=== PATIENT | female | born 2000 | race Caucasian/White ===

== ENCOUNTER 2020-02-20 18:42 | Emergency (ER) | payer OTHER, SELFPAY ==
[2020-02-20 19:00] VITALS: BP 134/70; PULSE 74; RESP 18; TEMP 36.9; O2SAT 100; BMI 24.2
[2020-02-20 19:27] LABS: UR Morphine/Opiate cutoff 300 Negative (Negative); Ur Creatinine Normal (Normal); Ur Specific Gravity Normal (Normal); Urine Amphetamines Negative (Negative); Urine Cocaine Negative (Negative); Urine Tetrahydrocannabinol Negative (Negative); Urine pH Normal (Normal)
[2020-02-20 19:28] LABS: Urine Barbiturates Negative (Negative); Urine Benzodiazepines Negative (Negative); Urine MDMA Negative (Negative); Urine Methadone Negative (Negative); Urine Methamphetamines Negative (Negative); Urine Oxycodone Negative (Negative); Urine Phencyclidine Negative (Negative); Urine Tricyclic Antidepressant Negative (Negative)
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
[2020-02-20 20:35] LABS: HIV 1 & 2 Ab/Ag 4th Gen Combo NEGATIVE (NEGATIVE); Hep C Virus Ab w/Reflex Quant NEGATIVE s/c (NEGATIVE)
[2020-02-20 20:59] LABS: Urine N gonorrhoeae NOT DETECTED
[2020-02-20 21:03] LABS: Urine Chlamydia NOT DETECTED
[2020-02-22 05:36] LABS: Hepatitis B Surf Ab Qualitativ Non Reactive (.)
== END 2020-02-20 21:20 | disposition home or self-care (01) ==
PROVIDERS: Emergency Provider Nurse Practitioner Family
DX: Z04.41 Encounter for examination and observation following alleged adult rape (principal)
CPT/HCPCS: 36415; 80305; 81003; 81025; 86706; 86803; 87070; 87205; 87210; 87389; 87491; 87591; 99284